=== PATIENT | female | born 1990 | race Caucasian/White ===

== ENCOUNTER 2024-10-13 04:37 | Emergency (ER) | payer BC ==
[~2024-10-13] VITALS: Ht 160 cm; Wt 69.4 kg
[2024-10-13 05:26] LABS: BASOPHILS # (AUTO) 0.1 K/uL (0.0-0.2); BASOPHILS % (AUTO) 0.6 % (0.0-2.0); EOSINOPHILS # (AUTO) 0.4 K/uL (0.0-0.7); EOSINOPHILS % (AUTO) 3.3 % (0.0-6.0); HEMATOCRIT 43 % (33-45); HEMOGLOBIN 14.2 g/dL (11.5-14.8); LYMPHOCYTES % (AUTO) 34.7 % (20.0-44.0); MEAN CORPUSCULAR HEMOGLOBIN 29 PG (26.0-33.0); MEAN CORPUSCULAR HGB CONC 33 g/dl (31.0-36.0); MEAN CORPUSCULAR VOLUME 88 fL (82-100); MONOCYTES # (AUTO) 0.7 K/uL (0.1-1.30); NEUTROPHILS # (AUTO) 6.3 K/uL (1.8-8.9); NEUTROPHILS % (AUTO) 55.4 % (43.0-81.0); PLATELET COUNT (AUTO) 295 K/uL (150-450); RED BLOOD CELL COUNT(AUTO) 4.92 MIL/uL (4.0-5.2); RED CELL DISTRIBUTION WIDTH 12.7 % (11.5-15.0); WHITE BLOOD COUNT (AUTO) 11.4 K/uL (4.3-11.0)
[2024-10-13 05:31] LABS: PREGNANCY TEST URINE QUAL NEGATIVE (NEGATIVE)
[2024-10-13 05:36] LABS: CALCIUM, SERUM 9.7 mg/dL (8.5-10.1); CARBON DIOXIDE 25 mmol/L (21-32); CHLORIDE 102 mmol/L (98-107); CREATININE 0.8 mg/dL (0.6-1.3); GLUCOSE 97 mg/dL (74-106); POTASSIUM 3.8 mmol/L (3.5-5.1); SODIUM SERUM 139 mmol/L (136-145); UREA NITROGEN, BLOOD 19 mg/dL (7-18)
[2024-10-13] MEDS ORDERED: IBUP-1490 PO (05:55)
[2024-10-13] MEDS ORDERED: ACETAMINOPHEN ES 500 MG TABLET ONE (07:06)
[2024-10-13] MEDS ORDERED: NAPROXEN 250 MG TABLET ONE (07:06)
[2024-10-13] MEDS: NAPROXEN 250 MG TABLET PO ONE (07:14)
[2024-10-13] MEDS: ACETAMINOPHEN ES 500 MG TABLET PO ONE (07:14)
[2024-10-13 08:21] VITALS: BP 113/82; O2SAT 96
== END 2024-10-13 08:28 | disposition home or self-care (01) ==
LOC: ER 04:39
DX: R07.89 Other chest pain (principal); R06.02 Shortness of breath; J45.909 Unspecified asthma, uncomplicated; Z86.718 Personal history of other venous thrombosis and embolism
CPT/HCPCS: 36415; 71045-TC; 80048-TC; 84484-TC; 84703-TC; 85025-TC; 85378-TC